=== PATIENT | female | born 1955 | race Two or more races ===

== ENCOUNTER 2018-02-10 09:33 | Outpatient (CLI) | payer OTHER ==
[~2018-02-10 09:33] MED LIST: ACTOS30 MG PO; ALTACE5 MG PO; AMBIEN10 MG PO; ATENOLOL25 GM MC; CARAFATE1 G PO; CIPRO500 MG PO; CIPRO750 MG PO; CIPROFLOXACIN750 MG PO; CLONAZEPAM0.5 MG/TAB PO; COD LIVER OIL1 EACH PO; Colace 100MG PO; DICY20TA PO; DOCUSATE SODIU100 MG PO; GLUCOPHAGE XR750 MG PO; IBUPROFEN800 MG PO; LANTUS SC; LANTUS100 U/ML SQ; LIPITOR40 MG PO; MOTRIN800 MG PO; NEURONTIN PO; ORPH100T PO; PERCOCET 5/3251 TAB PO; PROTONIX40 M1 PO; SYNTHROID150 MCG PO; VICTOZA PO; ZETIA10 MG PO; [UNRECOGNIZED DRUG - OTHER]
== END 2018-02-10 09:34 | disposition home or self-care (01) ==
LOC: SONOGRAMA 09:33
DX: E04.2 Nontoxic multinodular goiter (principal)

== ENCOUNTER 2018-02-10 10:09 | Outpatient (CLI) | payer OTHER | END 2018-02-10 11:00 | disposition home or self-care (01) | LOC: NUCLEAR 10:09 | DX: I83.893 Varicose veins of bilateral lower extremities with other complications (principal); R00.0 Tachycardia, unspecified; R00.2 Palpitations ==

== ENCOUNTER 2018-12-09 10:38 | Outpatient (CLI) | payer OTHER ==
[~2018-12-09 10:38] MED LIST changes: +NORFLEX100MG PO
== END 2018-12-09 10:43 | disposition home or self-care (01) ==
LOC: SONOGRAMA 10:38
DX: E04.2 Nontoxic multinodular goiter (principal)

== ENCOUNTER 2020-06-07 15:18 | Emergency (ER) | payer OTHER ==
[~2020-06-07] VITALS: Ht 162.6 cm; Wt 105.7 kg
[2020-06-08] MEDS ORDERED: SINGULAIR 10MG10 MG PO (17:17)
== END 2020-06-07 22:48 | disposition home or self-care (01) ==
LOC: ER 15:18
DX: N39.0 Urinary tract infection, site not specified (principal); R31.0 Gross hematuria

== ENCOUNTER 2020-06-08 16:47 | Inpatient (IN) | payer OTHER ==
[~2020-06-08] VITALS: Ht 162.6 cm; Wt 104.3 kg
[2020-06-08] MEDS ORDERED: SINGULAIR 10MG10 MG PO (17:17)
--- NOTE | 2020-06-08 17:17 | NUR ---
PACIENTE FEMINA ALERTA ORIENTADA EN COMPANIA DE FAMILIAR. EL PACIENTE REFIERE TENER DOLOR ABDOMINAL HERNANDEZ TENIDO 3 EPISODIO DE DIARREAS Y HERNANDEZ TENIDO 5 VOMITOS EN LAS ULTIMAS 24 HORAS.
--- NOTE | 2020-06-08 17:42 | NUR ---
PT ALERTA Y ORIENTADA X3 ESFERAS SE LE ORIENTA SOBRE TX Y REFIERE ENTEDER. SE [place]IE MUESTRAS DE SHALINI Y VENOPUNCION CON TECNICAS ASEPTICAS. SE ADMINISTRAN MEDICAMENTOS E IVLFUIDS ORDENADOS. PT TOLERA TX, TRANQUILA Y SIN DIFICULTAD RESPIRATORIA. SE MANTIENE BAJO OBSERVACION POR CAMBIOS EN DEANDRE.
--- NOTE | 2020-06-09 | NUR ---
SE RECIBE PACIENTE EN MANJEET CON MEDIDAS DE SEGURIDAD. LUCE ALERTA CONSCIENTE Y ORIENTADA X3 REFIERE DOLOR ABOMINAL. BUEN PATRON RESPIRATORIO. IV PATENTE. PTE EN ESPERA DE SER VIST[place] EN CONSULTA POR MEDICINA INTERNA.
--- NOTE | 2020-06-09 02:20 | NUR ---
SE ORIENTA AL PACIENTE SOBRE EL TX. SE ADMINISTRAN MEDICAMENTOS ROXY ORDEN MEDICAMENTOS.
--- NOTE | 2020-06-09 04:32 | NUR ---
SE RECANALIZA PACIENTE BAJO MEDIDAS ASEPTICAS Y SE ADMINISTRAN MEDICAMENTOS ROXY ORDEN MEDICA.
--- NOTE | 2020-06-09 07:04 | NUR ---
SE RECIBE PTE EL CUAL SE ENCUENTRA EN MANJEET CON BARANDAS ELEVADAS Y ID BAND, LA MISMA PRESENTA AREA DE VENOPUNCION PATENTE Y OSVALDO DE EDEMA, LA MISMA SE ENCUENTRA PEND A CONSULTA CON DR. TAYLOR LINDSAY Y DIETA CLEAR LIQUID.
--- NOTE | 2020-06-09 11:42 | NUR ---
SE ORIENTA A PTE SOBRE PROCESO DE EDDIE DE MUESTRAS SE HACE EDDIE DE B/P MANUAL A PTE LA CUAL SE ENCUENTRA EN 80/50. SE NOTIFICA A DR. BARRERA.
[2020-06-11] MEDS ORDERED: VICTOZA 3-0.6 MG/0.1 (08:19)
[2020-06-21] MEDS ORDERED: INTESTINEX680 M1 PO ×2 (11:04)
[2020-06-21] MEDS ORDERED: INTEGRA PLUS C1 EACH PO ×2 (11:04)
[2020-06-21] MEDS ORDERED: MIRALAX17 GM PO ×2 (11:05)
[2020-06-21] MEDS ORDERED: DIALYVITE 800-1 EACH PO ×2 (11:05)
[2020-06-21] MEDS ORDERED: LOTRIMIN AF12 GM TOP ×2 (11:09)
== END 2020-06-21 15:10 | disposition home or self-care (01) | DRG 690 ==
LOC: ER 16:47 → SURH 06-09 12:22 → SEC-K 06-09 12:22 → SURH 06-09 13:33 → MEDI 06-12 12:09
PROVIDERS: ADMIT Internal Medicine; ATTEND Internal Medicine
PROC: 02HV33Z Insertion of Infusion Device into Superior Vena Cava, Percutaneous Approach (ICD-10-PCS; 2020-06-11)
PROC: 8E0ZXY6 Isolation (ICD-10-PCS; principal; 2020-06-12)
PROC: 3E0F7SF Introduction of Other Gas into Respiratory Tract, Via Natural or Artificial Opening (ICD-10-PCS; 2020-06-15)
PROC: 3E0F7GC Introduction of Other Therapeutic Substance into Respiratory Tract, Via Natural or Artificial Opening (ICD-10-PCS; 2020-06-15)
DX: N39.0 Urinary tract infection, site not specified (principal); N17.8 Other acute kidney failure; R78.81 Bacteremia; I10 Essential (primary) hypertension; E03.9 Hypothyroidism, unspecified; K29.60 Other gastritis without bleeding; T36.8X5A Adverse effect of other systemic antibiotics, initial encounter; E66.01 Morbid (severe) obesity due to excess calories; E11.65 Type 2 diabetes mellitus with hyperglycemia; Z20.828 Contact with and (suspected) exposure to other viral communicable diseases; M79.7 Fibromyalgia; G47.33 Obstructive sleep apnea (adult) (pediatric); B96.20 Unspecified Escherichia coli [E. coli] as the cause of diseases classified elsewhere

== ENCOUNTER 2020-08-11 21:26 | Emergency (ER) | payer OTHER ==
[~2020-08-11] VITALS: Ht 162.6 cm; Wt 101.2 kg
[~2020-08-11 21:26] MED LIST changes: +DIALYVITE 800-1 EACH PO; +INTEGRA PLUS C1 EACH PO; +INTESTINEX680 M1 PO; +LOTRIMIN AF12 GM TOP; +MIRALAX17 GM PO; +SINGULAIR 10MG10 MG PO; +VICTOZA 3-0.6 MG/0.1
[2020-08-12] MEDS ORDERED: PEPCID AC20 MG PO (04:39)
[2020-08-12] MEDS ORDERED: INTESTINEX680 M2 PO (04:39)
[2020-08-12] MEDS ORDERED: LEVOFLOXACIN500 MG PO (04:39)
== END 2020-08-12 05:22 | disposition home or self-care (01) ==
LOC: ER 21:26
DX: N39.0 Urinary tract infection, site not specified (principal); B96.29 Other Escherichia coli [E. coli] as the cause of diseases classified elsewhere; R31.29 Other microscopic hematuria; K29.60 Other gastritis without bleeding; D72.828 Other elevated white blood cell count; Z03.818 Encounter for observation for suspected exposure to other biological agents ruled out

== ENCOUNTER → 2020-10-03 | Outpatient (CLI) | payer OTHER ==
[~2020-10-03] MED LIST changes: +INTESTINEX680 M2 PO; +LEVOFLOXACIN500 MG PO; +PEPCID AC20 MG PO
== END | disposition home or self-care (01) ==
LOC: TOM 07:45
PROVIDERS: ATTEND Internal Medicine
DX: N60.02 Solitary cyst of left breast (principal); R92.0 Mammographic microcalcification found on diagnostic imaging of breast; N64.59 Other signs and symptoms in breast; K76.0 Fatty (change of) liver, not elsewhere classified; N60.12 Diffuse cystic mastopathy of left breast; N60.11 Diffuse cystic mastopathy of right breast; N39.0 Urinary tract infection, site not specified; N32.2 Vesical fistula, not elsewhere classified; K57.90 Diverticulosis of intestine, part unspecified, without perforation or abscess without bleeding; Z12.31 Encounter for screening mammogram for malignant neoplasm of breast

== ENCOUNTER 2020-11-09 16:17 | Emergency (ER) | payer OTHER ==
[~2020-11-09] VITALS: Ht 157.5 cm; Wt 86.2 kg
== END 2020-11-09 22:41 | disposition home or self-care (01) ==
LOC: ER 16:17
DX: R42 Dizziness and giddiness (principal); R06.02 Shortness of breath